=== PATIENT | female | born 1950 ===

== ENCOUNTER 2023-04-06 08:49 | Inpatient (IN) | payer OTHER ==
[~2023-04-06] VITALS: Ht 157.5 cm; Wt 43.1 kg
[2023-04-12] MEDS ORDERED: ACETAMINOPHEN-1 EAC2 PO (07:39)
[2023-04-12] MEDS ORDERED: COLACE100 MG PO (07:39)
[2023-04-12] MEDS ORDERED: MEDROLPACK PO (07:39)
[2023-04-12] MEDS ORDERED: ZOFRAN8 MG PO (07:52)
== END 2023-04-13 11:44 | disposition home or self-care (01) | DRG 473 ==
LOC: PED 04-12 05:00 → O/R 04-12 05:00 → SURG 04-12 07:00 → PED 04-12 11:10
PROVIDERS: ADMIT Orthopaedic Surgery Orthopaedic Surgery of the Spine; ATTEND Orthopaedic Surgery Orthopaedic Surgery of the Spine
PROC: 0RT30ZZ Resection of Cervical Vertebral Disc, Open Approach (ICD-10-PCS; 2023-04-12)
PROC: 07DS0ZZ Extraction of Vertebral Bone Marrow, Open Approach (ICD-10-PCS; 2023-04-12)
PROC: 0RG20A0 Fusion of 2 or more Cervical Vertebral Joints with Interbody Fusion Device, Anterior Approach, Anterior Column, Open Approach (ICD-10-PCS; principal; 2023-04-12 07:00)
DX: M50.021 Cervical disc disorder at C4-C5 level with myelopathy (principal); M48.02 Spinal stenosis, cervical region